=== PATIENT | female | born 1980 | race Caucasian/White ===

== ENCOUNTER 2016-11-21 23:01 | Emergency (ER) | payer MEDICAID ==
[2016-11-21 23:09] VITALS: BP 104/74; PULSE 69; RESP 16; TEMP 98.1; O2SAT 95
[2016-11-21] MEDS ORDERED: FLUORESCEIN SODIUM 1 MG STRIP OP ONE (23:40)
[2016-11-21] MEDS ORDERED: PROPARACAINE 0.5% 15 ML OPHT DROP ONE (23:41)
[2016-11-21] MEDS ORDERED: ERYTHROMYCIN 0.5% 1 GM OPHT.OINT EACHEYE ONE (23:49)
--- NOTE | 2016-11-21 23:53 | EDPHY ---
H & P Stated Complaint: R eye irritatiion Time Seen by Provider: 11/21/16 23:35 HPI/ROS: Chief complaint: Right eye irritation HPI: 36-year-old female felt irritation in her right eye earlier this evening. Patient reviewed. She then felt the sensation of a foreign body in her eye. When she looked in the affect there appeared to be a small flesh-colored foreign body in her eye. She put in some allergy eye drops. She still feels the sensation of foreign body in her eye. She denies any vision changes. No trauma. Does state she has some it irritation in that eye last week and has been scratching. She has not had any discharge. She does not wear contacts, does wear glasses for reading. ROS: 10 point Review of Systems is negative except as noted in the HPI. Physical exam: General: Awake, alert, no acute distress Eye Exam [EOM:] [Intact] [OU] [Visual Zarate:] [Intact] [OU] [Pupil:] [Equal, round and reactive to light and accomodation] [OU] [External:] [Lids, lashes and margins normal] [OU] [Normal Conjuctiva,] [Iris normal], [Cornea normal] [Fluorosceine exam:] There is a small abrasion in the 7 o'clock position over the sclera, there is no foreign body [] - Personal History LMP (Females 10-55): Hysterectomy Current Tetanus/Diphtheria Vaccine: Unsure Current Tetanus Diphtheria and Acellular Pertussis (TDAP): Unsure - Medical/Surgical History Hx Asthma: No Hx Chronic Respiratory Disease: No Hx Diabetes: No Hx Cardiac Disease: No Hx Renal Disease: No Hx Cirrhosis: No Hx Alcoholism: No Hx HIV/AIDS: No Hx Splenectomy or Spleen Trauma: No Other PMH: hysterectomy, depression - Social History Smoking Status: Never smoked Constitutional: Initial Vital Signs Temperature (C) 36.7 C 11/21/16 23:07 Heart Rate 69 11/21/16 23:07 Respiratory Rate 16 11/21/16 23:07 Blood Pressure 104/74 11/21/16 23:07 O2 Sat (%) 95 11/21/16 23:07 O2 Delivery Mode Room Air Allergies/Adverse Reactions: No Known Allergies Allergy (Unverified 11/21/16 23:06) Home Medications: Medication Instructions Recorded Sertraline HCl [Zoloft 50mg (*)] 04/28/16 Departure - Departure Disposition: Home, Routine, Self-Care Clinical Impression: Corneal abrasion Condition: Good Instructions: Corneal Abrasion (ED) Additional Instructions: Apply the erythromycin eye ointment to the affected eye every 4 hours while awake for the next 2 days. If you're still having pain or irritation or vision changes, follow up with Ophthalmology in 2-3 days for re-evaluation. Referrals: Salma Romo MD [Non Staff Provider (MD)] - As per Instructions
== END 2016-11-22 00:43 | disposition home or self-care (01) ==
DX: S05.01XA Injury of conjunctiva and corneal abrasion without foreign body, right eye, initial encounter (principal); X58.XXXA Exposure to other specified factors, initial encounter